=== PATIENT | female | born 1970 | race Caucasian/White ===

== ENCOUNTER 2020-08-23 09:14 | Outpatient (CLI) | payer BC, SELFPAY ==
--- NOTE | ~2020-08-23 | MM_ITS ---
EXAMINATION: MM screening hina BI w adriana HISTORY: Screening mammogram TECHNIQUE: Craniocaudal and mediolateral oblique 3-D tomosynthesis images were obtained and synthetic 2-D images were generated. CAD analysis was submitted and interpreted. COMPARISON: 08/09/2019, 07/15/2018, 05/30/2016 bilateral digital screening mammogram examinations BREAST PARENCHYMAL COMPOSITION: The breasts are almost entirely fatty. FINDINGS: There is no evidence of suspicious mass, calcification, or architectural distortion to sugg est malignancy in either breast. There has been no suspicious interval change. IMPRESSION: 1. No mammographic evidence of malignancy. 2. Recommend routine screening mammography in one year. BI-RADS Category 1: Negative Reviewed, dictated and finalized at location A. WASHER GLUER
== END 2020-08-23 09:15 | disposition home or self-care (01) ==
LOC: ANHIMG 09:16
PROVIDERS: PCP Family Medicine; Visit Provider Nurse Practitioner
DX: Z12.31 Encounter for screening mammogram for malignant neoplasm of breast (principal)
CPT/HCPCS: 77063; 77067

== ENCOUNTER 2021-09-06 07:54 | Outpatient (CLI) | payer BC, SELFPAY ==
--- NOTE | ~2021-09-06 | DEXA_ITS ---
Bone Density Report Name: ETHAN ROSARIO Age: 50 Sex: Female Ethnicity: White Date of : 1970 Indication: postmenopausal; Referring Provider: ANNETTE SOLORIO Study: Bone densitometry was performed. Exam Date: September 06, 2021 Accession number: [id number] Bone Density: Region BMD T-score Z-score Classification AP Spine (L1-L4) 0.954 -0.8 0.1 Normal Femoral Neck (Left) 0.885 0.3 1.2 Normal Total Hip (Left) 1.025 0.7 1.3 Normal Total Hip Bilateral Avg 1.023 0.7 1.3 Normal Femoral Neck (Right) 0.838 -0.1 0.8 Normal Total Hip (Right) 1.019 0.6 1.2 Normal World Health Organization criteria for BMD impression classify patients as: Normal (T-score at or above -1.0), Osteopenia (T-score between -1.0 and -2.5), or Osteoporosis (T-score at or below -2.5). 10-year Fracture Risk: FRAX not reported because: All T-scores for Spine Total, Hip Total, Femoral Neck at or above -1.0 Clinical Information Provided by Patient: Has used the following medications: Vitamin D, Calcium Patient maximum height was 61 Menopause Age: 49 No regular weight bearing exercise Does not regularly consume dairy products Drinks caffeinated beverages Onset of menses at age 10 Number of children 1 Impression: The patient has normal bone mass. Discussion: BONE DENSITY IS ABOVE THE MINIMUM DESIRABLE LEVEL AT ALL SKELETAL SITES TESTED. This patient?s bone mineral density is above the minimum desirable level (T-score -1.0 or better) at all sites measured. The patient should follow a healthful lifestyle (good nutrition with adequate calcium and vitamin D, and appropriate weight-bearing exercise). Follow-Up: Consider repeating this study in 5 years or sooner if there is some new clinical indication. Reported by: [facility] on 09/06/2021 8:20:00 AM. Reviewed, dictated and finalized at location ALeo HERRING
== END 2021-09-06 07:55 | disposition home or self-care (01) ==
LOC: ANHIMG 07:56
PROVIDERS: PCP Family Medicine; Visit Provider Family Medicine
DX: Z78.0 Asymptomatic menopausal state (principal)
CPT/HCPCS: 77080

== ENCOUNTER 2021-10-03 07:41 | Outpatient (CLI) | payer BC, SELFPAY ==
--- NOTE | ~2021-10-03 | MM_ITS ---
EXAMINATION: MM screening hina BI w adriana HISTORY: Screening TECHNIQUE: Craniocaudal and mediolateral oblique 3-D tomosynthesis images were obtained and synthetic 2-D images were generated. CAD analysis was submitted and interpreted. COMPARISON: Comparison to multiple prior studies sequentially, with oldest reviewed study dated 01/08. BREAST PARENCHYMAL COMPOSITION: There are scattered areas of fibroglandular density. FINDINGS: There is no evidence of suspicious mass, calcification, or architectural distortion to sugg est malignancy in either breast. There has been no suspicious interval change. IMPRESSION: 1. No mammographic evidence of malignancy. 2. Recommend routine screening mammography in one year. BI-RADS Category 1: Negative Reviewed, dictated and finalized at location A. ORMANCE SPECIALIST
== END 2021-10-03 07:42 | disposition home or self-care (01) ==
LOC: ANHIMG 07:42
PROVIDERS: PCP Family Medicine; Visit Provider Nurse Practitioner
DX: Z12.31 Encounter for screening mammogram for malignant neoplasm of breast (principal)
CPT/HCPCS: 77063; 77067

== ENCOUNTER 2022-04-14 11:19 | Emergency (ER) | payer BC, SELFPAY ==
--- NOTE | ~2022-04-14 | US_ITS ---
EXAMINATION: US venous doppler [facility] DATE: 04/14/2022 11:53 INDICATION: Left lower limb pain TECHNIQUE: Salgado scale images without and with compression and Doppler images of the left lower extrem ity veins were obtained. COMPARISON: None FINDINGS: The left common femoral vein, profunda femoral vein, femoral vein, popliteal vein, peroneal trunk, posterior tibial veins, and greater saphenous vein are patent. IMPRESSION: 1. Patent left lower extremity veins. No evidence of deep venous thrombosis. Reviewed, dictated and finalized at location B.
[2022-04-14 11:25] VITALS: BP 150/76; PULSE 99; RESP 18; TEMP 36.8; O2SAT 100
--- NOTE | 2022-04-14 12:40 | ED.EXTPRO ---
HPI - Extremity Problem General Chief complaint: Extremity Problem,Nontraumatic Stated complaint: left leg pain Time Seen by Provider: 04/14/22 11:21 History of Present Illness HPI Narrative: Patient is a 51-year-old female who presents the ER with left calf pain. Ongoing over the last month but worsening recently. No known injury. Feels it radiate into the back of her knee. No new edema or redness. No history of PE or DVT but is concerned she may have developed 1. No chest pain or chest pressure or difficulty breathing. 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 Related Data Home Medications Medication Instructions Recorded Confirmed ergocalciferol (vitamin D2) 50 mcg 50 mcg PO .BIW 01/31/21 01/30/22 (2,000 unit) capsule Allergies Allergy/AdvReac Type Severity Reaction Status Date / Time No Known Allergies Allergy Mild Verified 04/14/22 11:31 Review of Systems Review of Systems: All systems reviewed & are unremarkable except as noted in HPI and below Cardiovascular: Cardiovascular: Denies chest pain and Denies rapid heart rate Respiratory: Respiratory: Denies cough and Denies dyspnea Musculoskeletal: Musculoskeletal: Denies joint swelling and Reports muscle cramps Comments: Left calf pain. PMFSH Past Medical History Medical History (Updated 04/14/22 @ 12:58 by Yimi Farrar MD) Anxiety Anxiety Encounter for monitoring diuretic therapy Essential hypertension GERD (gastroesophageal reflux disease) Mixed hyperlipidemia Neck pain Obesity, Class III, BMI 40-49.9 (morbid obesity) Vitamin D deficiency Surgical History Surgical History History of toe surgery (~2018) big toe right foot Hx of section (~1994) [place] teeth extracted Family History Family History Other Family history of rheumatoid arthritis Hypertension Social History Social History Second hand tobacco smoke exposure: No Alcohol intake: never Substance use: never Substance use type: does not use Gender identity (if verbalized by the patient): Female Exam Narrative: GENERAL: Well-appearing, well-nourished, and in no acute distress. HEAD: Normocephalic, atraumatic. CHEST: Clear to auscultation. No respiratory distress. HEART: Regular rate and rhythm. Normal peripheral pulses. EXTREMITIES: Normal range of motion. No edema. Left calf tender. SKIN: Warm, dry, no rash. NEURO: Alert and oriented x3. PSYCH: Normal mood and affect. Course Course Emergency Course: No DVT. Discussed treatment with anti-inflammatories and RICE. Vital Signs Vital signs: Vital Signs Temperature 98.3 F 04/14/22 11:25 Pulse Rate 99 04/14/22 11:25 Respiratory Rate 18 04/14/22 11:25 Blood Pressure 150/76 H 04/14/22 11:25 Pulse Oximetry 100 04/14/22 11:25 Oxygen Delivery Room Air 04/14/22 11:25 Temperature 98.3 F 04/14/22 11:25 Pulse Rate 99 04/14/22 11:25 Respiratory Rate 18 04/14/22 11:25 Blood Pressure 150/76 H 04/14/22 11:25 Pulse Oximetry 100 04/14/22 11:25 Oxygen Delivery Room Air 04/14/22 11:25 MDM - Extremity (Nontraumatic) Imaging Data Radiologist's impression: ITS Impressions Venous Doppler Study 04/14/22 11:54 IMPRESSION: 1. Patent left lower extremity veins. No evidence of deep venous thrombosis. Discharge Plan Discharge Clinical Impression: Strain of calf muscle Patient Disposition: Home, Self-Care Condition: Stable Instructions: Muscle Strain (ED), P.R.I.C.E. Treatment (ED) Additional Instructions: Return to the ER if you have chest pain or shortness of breath, you cannot keep down food or water, you lose consciousness, you have additional concerns. Take Tylenol or ibuprofen as needed for pain. Make sure to stretch her legs. Prescriptio
== END 2022-04-14 13:14 | disposition home or self-care (01) ==
PROVIDERS: Emergency Provider Emergency Medicine; PCP Family Medicine
DX: S86.912A Strain of unspecified muscle(s) and tendon(s) at lower leg level, left leg, initial encounter (principal); E78.2 Mixed hyperlipidemia; K21.9 Gastro-esophageal reflux disease without esophagitis; E66.01 Morbid (severe) obesity due to excess calories; Z68.42 Body mass index [BMI] 45.0-49.9, adult; E55.9 Vitamin D deficiency, unspecified; X58.XXXA Exposure to other specified factors, initial encounter
CPT/HCPCS: 93971; 99284

== ENCOUNTER 2023-04-09 15:32 | Outpatient (CLI) | payer OTHER, SELFPAY ==
--- NOTE | ~2023-04-09 | US_ITS ---
US renal BI DATE: 04/09/2023 16:15 INDICATION: Disorder of kidney and ureter, unspecified TECHNIQUE: Real-time imaging of the kidneys and urinary bladder COMPARISON: None FINDINGS: The right kidney measures approximately 9.5 cm length, left kidney 10.7 cm. Normal bilatera l renal echogenicity. No renal mass lesion or hydronephrosis. Bilateral ureteral jets are demonstrated in the urinary bladder. No filling defect of the urinary janice dder is observed. IMPRESSION: No significant abnormality is demonstrated Reviewed, dictated and finalized at Location A. Reviewed, dictated and finalized at location B.
[2023-04-09 16:43] LABS: Appearance Urine Clear (Clear); Bacteria Urine None Seen /hpf; Bilirubin Urine Negative (Negative); Blood Urine Negative (Negative); Color Urine Yellow (Yellow); Glucose Urine UA Negative (Negative); Ketones Urine Negative (Negative); Leukocyte Esterase Ur 1+ LEU/UL (Negative); Need Manual Microscopic Reviewed; Nitrate Urine Negative (Negative); Non Pathogenic Casts 0-2; Protein Urine Negative (Negative); RBC Urine 0-2 /hpf (0-2); Specific Grav Ur 1.008 (1.001-1.035); Squamous Epithelial Cell Urine None seen /hpf (Few); Urobilinogen Urine 0.2 mg/dL (<2.0); WBC Urine 0-5 /hpf
[2023-04-09 16:46] LABS: Add Urine Microscopic? YES
== END 2023-04-09 15:33 | disposition home or self-care (01) ==
PROVIDERS: PCP Family Medicine; Visit Provider Physician Assistant
DX: N28.9 Disorder of kidney and ureter, unspecified (principal)
CPT/HCPCS: 76775; 81001

== ENCOUNTER 2023-08-20 10:43 | Outpatient (CLI) | payer OTHER, SELFPAY ==
[2023-08-20 11:29] LABS: Alanine Aminotransferase 43 U/L (6-35); Albumin Level 4.7 g/dL (3.5-5.1); Alkaline Phosphatase 61 U/L (38-126); Anion Gap 10 mmol/L (8-16); Aspartate Amino Transferase 41 U/L (14-36); Bilirubin,Total 0.5 mg/dL (0.2-1.3); Blood Urea Nitrogen 22 mg/dL (7-17); Calcium 10.1 mg/dL (8.4-10.2); Carbon Dioxide 25 mmol/L (22-30); Chloride 103 mmol/L (98-107); Cholesterol 199 mg/dL (0-200); Estimated Glomerular Filt Rate 58; Glucose 95 mg/dL (65-110); HDL Direct 79 mg/dL; Potassium 4.3 mmol/L (3.4-5.0); Sodium 138 mmol/L (137-145); Triglycerides 106 mg/dL (<150)
[2023-08-20 11:40] LABS: LDL Cholesterol Direct 83 mg/dL
[2023-08-20 11:46] LABS: Hemoglobin A1C 5.3 % (<5.7)
[2023-08-20 11:53] LABS: Appearance Urine Clear (Clear); Bacteria Urine None Seen /hpf; Bilirubin Urine Negative (Negative); Blood Urine Negative (Negative); Color Urine Yellow (Yellow); Glucose Urine UA Negative (Negative); Ketones Urine Negative (Negative); Leukocyte Esterase Ur 1+ LEU/UL (Negative); Need Manual Microscopic Reviewed; Nitrate Urine Negative (Negative); Non Pathogenic Casts 0-2; Protein Urine Negative (Negative); RBC Urine 0-2 /hpf (0-2); Specific Grav Ur 1.021 (1.001-1.035); Squamous Epithelial Cell Urine Few /hpf (Few); Urobilinogen Urine 0.2 mg/dL (<2.0); WBC Urine 0-5 /hpf; pH Urine 5.5 (5.0-9.0)
[2023-08-20 12:04] LABS: Add Urine Microscopic? YES
== END 2023-08-20 10:44 | disposition home or self-care (01) ==
LOC: ANHLAB 10:45
PROVIDERS: PCP Family Medicine; Visit Provider Family Medicine
DX: R73.03 Prediabetes (principal); N18.30 Chronic kidney disease, stage 3 unspecified; R53.83 Other fatigue; E78.2 Mixed hyperlipidemia
CPT/HCPCS: 36415; 80053; 80061; 81001; 83036; 84443

== ENCOUNTER 2023-10-22 00:56 | Day surgery (SDC) | payer OTHER, SELFPAY ==
[2023-09-23 13:17] VITALS: BMI 44.3
--- NOTE | 2023-10-20 11:32 | SUR.PREOP ---
Patient called regarding upcoming procedure. Message left on pt's voicemail regarding appointment times.
--- NOTE | 2023-10-20 19:17 | PM.HPGS ---
History of Present Illness History of Present Illness Consent: Risks, benefits, and alternatives have been discussed and questions answered. Patient agrees to proceed with procedure. Chief complaint: neoplasm screening Narrative: Radha Phan is a 52 year old female who is referred for colon cancer screening. Review of Systems Review of Systems: All systems reviewed & are unremarkable except as noted in HPI and below PMFSH Past Medical History Medical History Anxiety Anxiety Encounter for monitoring diuretic therapy Essential hypertension GERD (gastroesophageal reflux disease) Knee pain Mixed hyperlipidemia Neck pain Obesity, Class III, BMI 40-49.9 (morbid obesity) Prediabetes Seasonal allergic rhinitis Vitamin D deficiency Surgical History Surgical History History of toe surgery (~2018) big toe right foot Hx of section (~1994) [place] teeth extracted Family History Family History Other Family history of rheumatoid arthritis Hypertension Social History Social History Smoking status: Never smoker Second hand tobacco smoke exposure: No Alcohol intake: never Substance use: never Substance use type: does not use Lack of Transportation: No Lack of Food: Never True Current Housing: I Have Housing Concerned About Future Housing: No Difficulty Paying Gas/Electric Bills: No Difficulty Paying for Meds: No Currently Unemployed: No Education: High School Diploma/GED Difficulty w/ Childcare or Family Care: No Living arrangements: with family Occupation/Education: occupation Gender identity (if verbalized by the patient): Female Spiritual care concerns: No Agree to blood products: Yes Meds Home Medications and Allergies Home Medications Medication Instructions Recorded Confirmed Type aspirin 81 mg tablet,delayed 81 mg PO DAILY #90 tabs 08/08/21 10/22/23 Rx release cetirizine 10 mg tablet (Zyrtec) 10 mg PO DAILY #90 tabs 07/08/23 10/22/23 Rx fenofibrate nanocrystallized 145 145 mg PO DAILY #90 tabs 07/08/23 10/22/23 Rx mg tablet losartan 100 mg tablet 100 mg PO DAILY #90 tabs 07/08/23 10/22/23 Rx venlafaxine 75 mg capsule,extended 75 mg PO DAILY #90 caps 07/08/23 10/22/23 Rx release 24 hr tramadol 50 mg tablet 50 mg PO Q8H PRN pain 09/23/23 10/22/23 History triamterene 75 1 tablet PO DAILY PRN swelling 09/23/23 10/22/23 History mg-hydrochlorothiazide 50 mg tablet Allergies Allergy/AdvReac Type Severity Reaction Status Date / Time No Known Allergies Allergy Mild Verified 10/22/23 08:05 Exam Resp: Auscultation: clear to auscultation bilaterally Cardio: Rate: regular rate Rhythm: regular rhythm GI: GI Palp: Yes Soft to palpation and No Tenderness to palpation present (GI) Assessment and Plan Assessment and plan (1) Colon cancer screening: Code(s): Z12.11 - Encounter for screening for malignant neoplasm of colon Status: Acute Assessment and Plan: Colonoscopy with possible biopsy or polypectomy or cautery or injection of substances.
[2023-10-22 08:07] VITALS: BP 146/95; PULSE 106; RESP 20; TEMP 36.6; O2SAT 100
[2023-10-22] MEDS: LACTATED RINGERS 1,000 ML 150 ML IV CONT (08:21)
--- NOTE | 2023-10-22 09:12 | WPDANESEPPF ---
Anes - Initial Pre Proc Eval Procedure: Operation Date: 10/22/23 09:00 Proposed Procedures p Screening Colonoscopy - Srinivas Manning MD Date/Time: 10/22/23 09:12 Surgeon: Srinivas Manning MD Pre Op Diagnosis: neoplasm screening Patient Data Age: 52 Gender: F Height: 1.55 m Weight: 103.6 kg Last Vital Signs Temp 97.8 F 10/22/23 08:07 Pulse 106 H 10/22/23 08:07 Resp 20 10/22/23 08:07 BP 146/95 H 10/22/23 08:07 Pulse Ox 100 10/22/23 08:07 O2 Del Method Room Air 10/22/23 08:07 Allergies Allergy/AdvReac Type Severity Reaction Status Date / Time No Known Allergies Allergy Mild Verified 10/22/23 08:05 Home Medications Medication Instructions Recorded Confirmed Type aspirin 81 mg tablet,delayed 81 mg PO DAILY #90 tabs 08/08/21 10/22/23 Rx release cetirizine 10 mg tablet (Zyrtec) 10 mg PO DAILY #90 tabs 07/08/23 10/22/23 Rx fenofibrate nanocrystallized 145 145 mg PO DAILY #90 tabs 07/08/23 10/22/23 Rx mg tablet losartan 100 mg tablet 100 mg PO DAILY #90 tabs 07/08/23 10/22/23 Rx venlafaxine 75 mg capsule,extended 75 mg PO DAILY #90 caps 07/08/23 10/22/23 Rx release 24 hr tramadol 50 mg tablet 50 mg PO Q8H PRN pain 09/23/23 10/22/23 History triamterene 75 1 tablet PO DAILY PRN swelling 09/23/23 10/22/23 History mg-hydrochlorothiazide 50 mg tablet Patient hx anesthesia problems: none Family hx anesthesia problems: none Results Review: All pre-operative results and documents have been reviewed as part of the pre-operative evaluation. [facility] Past Medical History Medical History Anxiety Anxiety Encounter for monitoring diuretic therapy Essential hypertension GERD (gastroesophageal reflux disease) Knee pain Mixed hyperlipidemia Neck pain Obesity, Class III, BMI 40-49.9 (morbid obesity) Prediabetes Seasonal allergic rhinitis Vitamin D deficiency Surgical History Surgical History History of toe surgery (~2018) big toe right foot Hx of section (~1994) [place] teeth extracted Family History Family History Other Family history of rheumatoid arthritis Hypertension Social History Social History Smoking status: Never smoker Second hand tobacco smoke exposure: No Alcohol intake: never Substance use: never Substance use type: does not use Lack of Transportation: No Lack of Food: Never True Current Housing: I Have Housing Concerned About Future Housing: No Difficulty Paying Gas/Electric Bills: No Difficulty Paying for Meds: No Currently Unemployed: No Education: High School Diploma/GED Difficulty w/ Childcare or Family Care: No Living arrangements: with family Occupation/Education: occupation Gender identity (if verbalized by the patient): Female Spiritual care concerns: No Agree to blood products: Yes Anes - Eval Final PreProcedure Day of Procedure 10/22/23 09:12 Patient weight: morbidly obese Heart: regular rate and rhythm Lungs: clear to auscultation Airway: Mallampati scale class II Neurological: alert and oriented Last oral intake: >/= 8 hours ASA classification: III Emergent: no Anesthetic plan: proceed Anesthesia type and monitoring: general GIVS and standard monitoring Results Review: All pre-operative results and documents have been reviewed as part of the pre-operative evaluation. Informed Consent: The patient's anesthetic plan and its attendant risks and benefits were discussed with the patient/family/POA. Questions were solicited and answers provided to the satisfaction of the patient/family/POA.
[2023-10-22 09:27] VITALS: BP 124/64; PULSE 74; RESP 22; O2SAT 99
[2023-10-22 09:37] VITALS: BP 142/73; PULSE 72; RESP 18; O2SAT 100
[2023-10-22 09:47] VITALS: BP 128/67; PULSE 72; RESP 22; O2SAT 100
== END 2023-10-22 10:11 | disposition home or self-care (01) ==
PROVIDERS: PCP Family Medicine; Visit Provider Internal Medicine Gastroenterology
PROC: 0DJD8ZZ Inspection of Lower Intestinal Tract, Via Natural or Artificial Opening Endoscopic (ICD-10-PCS; CPT 45378; principal; 2023-10-22 09:00)
DX: Z12.11 Encounter for screening for malignant neoplasm of colon (principal); I10 Essential (primary) hypertension; E78.2 Mixed hyperlipidemia; E55.9 Vitamin D deficiency, unspecified; F41.9 Anxiety disorder, unspecified; R73.03 Prediabetes; J30.2 Other seasonal allergic rhinitis; K21.9 Gastro-esophageal reflux disease without esophagitis; E66.01 Morbid (severe) obesity due to excess calories; Z68.41 Body mass index [BMI] 40.0-44.9, adult; Z98.890 Other specified postprocedural states; Z79.82 Long term (current) use of aspirin; Z79.891 Long term (current) use of opiate analgesic
CPT/HCPCS: 45378; J2704; J7120

== ENCOUNTER 2023-11-12 07:43 | Outpatient (CLI) | payer OTHER, SELFPAY ==
--- NOTE | ~2023-11-12 | MM_ITS ---
EXAMINATION: MM screening hina BI w adriana HISTORY: Screening TECHNIQUE: Craniocaudal and mediolateral oblique 3-D tomosynthesis images were obtained and synthetic 2-D images were generated. CAD analysis was submitted and interpreted. COMPARISON: Comparison to multiple prior studies sequentially, with oldest reviewed study dated 05/2014. BREAST PARENCHYMAL COMPOSITION: Not Dense: Breast are almost entirely fatty. FINDINGS: There is no evidence of suspicious mass, calcification, or architectural distortion to sugg est malignancy in either breast. There has been no suspicious interval change. IMPRESSION: 1. No mammographic evidence of malignancy. 2. Recommend routine screening mammography in one year. BI-RADS Category 1: Negative Reviewed, dictated and finalized at location A. ND GRINDER
== END 2023-11-12 07:44 | disposition home or self-care (01) ==
LOC: ANHIMG 07:45
PROVIDERS: PCP Family Medicine; Visit Provider Nurse Practitioner
DX: Z12.31 Encounter for screening mammogram for malignant neoplasm of breast (principal)
CPT/HCPCS: 77063; 77067

== ENCOUNTER 2024-04-28 07:54 | Outpatient (CLI) | payer OTHER, SELFPAY ==
--- NOTE | ~2024-04-28 | US_ITS ---
US abdomen limited INDICATION: Normal lab values. PROCEDURE: Realtime right upper abdominal ultrasound. COMPARISON: No prior studies for comparison. FINDINGS: The pancreas is normal without focal mass or pancreatic ductal dilation. Liver echotexture is increased, consistent with fatty infiltration. There is normal directional flow in the portal ve in. The gallbladder is normal without stones, gallbladder wall thickening or pericholecystic fluid. Comm on bile duct measures 5 mm. No sonographic Richter's sign. IMPRESSION: 1: Fatty infiltration of the liver. Reviewed, dictated and finalized at location B.
== END 2024-04-28 07:55 | disposition home or self-care (01) ==
PROVIDERS: PCP Family Medicine; Visit Provider Family Medicine
DX: R74.8 Abnormal levels of other serum enzymes (principal); K76.0 Fatty (change of) liver, not elsewhere classified
CPT/HCPCS: 76705

== ENCOUNTER 2025-07-03 01:27 | Emergency (ER) | payer OTHER, SELFPAY ==
[2025-07-03] VITALS (10 sets, daily range): BP systolic 135–155; BP diastolic 64–94; PULSE 91–106; RESP 15–20; TEMP 36.6; O2SAT 98–100
--- NOTE | ~2025-07-03 | CT_ITS ---
EXAMINATION: CT abdomen pelvis w con DATE: 07/03/2025 07:59 INDICATION: Abdominal pain. Low back pain. TECHNIQUE: Computed tomography (CT) of the abdomen and pelvis was performed with 100 mL Omnipaque 350 intravenous contrast. Automated exposure control and iterative reconstruction technique were employed. The dose-length product was 1133.14 mGy-cm. COMPARISON: None. FINDINGS: The visualized portions of the lung bases demonstrate mild atelectasis. No pleural effusion. The heart size is normal. No pericardial effusion. The liver, gallbladder, spleen, pancreas, adrenal glands, and kidneys are normal. There are no dilated loops of bowel. The appendix is normal. There are no pathologically enlarged lymph nodes. There is no free intraperitoneal fluid. There is an infraumbilical ventral hernia containing fat. There is a benign bone island in right ischium. There is moderate lumbar spondylosis. There is mild thoracic spondylosis. IMPRESSION: 1. Infraumbilical ventral hernia containing fat. Reviewed, dictated and finalized at location E.
--- NOTE | ~2025-07-03 | CT_ITS ---
CT HEAD NON-CONTRAST CT C-SPINE Clinical History: syncope w/ LOC; hit L skull Comparison: None Technique: Unenhanced axial images skull base to vertex. Coronal, sagittal reformats. Axial images thoracic inlet to skull base. Sagittal and coronal reformats. CT images acquired with automatic exposure control for dose reduction DLP: 605 mGy-cm Findings: Head: Sulci, ventricles: Unremarkable. No intracerebral hemorrhage. No evidence acute territorial infarct. No mass effect, midline shift, intra-/extra-axial fluid collection. Bony calvarium intact. Visualized paranasal sinuses: Clear. Mastoid air cells: Clear. C-spine: Ankylosis C1-C2. Severe compression deformity C3. No sharp edges or surrounding soft tissue inflammatory change. Otherwise no fracture or listhesis. Mild degenerative changes. Disc spaces maintained. Prevertebral soft tissues within normal limits. Visualized lung apices: Clear. Visualized thyroid: Unremarkable. No enlarged cervical nodes. Small nodes at most levels. IMPRESSION: HEAD: 1. No acute intracranial findings. C-SPINE: 1. No definite acute abnormality. 2. Severe compression deformity C3, appears chronic. However a superimposed injury cannot be excluded. Can consider MRI if clinically worrisome for acute abnormality. Reviewed, dictated and finalized at location R. IMPRESSION: HEAD: 1. No acute intracranial findings. C-SPINE: 1. No definite acute abnormality. 2. Severe compression deformity C3, appears chronic. However a superimposed in jury cannot be excluded. Can consider MRI if clinically worrisome for acute abn ormality.
--- NOTE | ~2025-07-03 | XR_ITS ---
Examination: XR chest 1V portable Clinical History: syncope Comparison: None Technique: Portable AP Findings: Heart size normal. Lungs clear. No acute bony abnormality. IMPRESSION: 1. No acute cardiopulmonary findings given portable technique. Reviewed, dictated and finalized at location R.
--- NOTE | 2025-07-03 01:41 | ECG_ITS ---
Test Date: 2025-07-03 01:41:39 Measurements Intervals [place] Rate: 99 P: 65 ND: 201 QRS: 7 QRSD: 70 T: 32 QT: 322 QTc: 413 Interpretive Statements SINUS RHYTHM INCOMPLETE RIGHT BUNDLE BRANCH BLOCK LOW QRS VOLTAGE IN PRECORDIAL LEADS VOLTAGE CRITERIA FOR LVH BASELINE ARTIFACT- I, II, III, AVR, AVL, AVF, V1-V6 BORDERLINE ECG No previous ECG available for comparison Electronically Signed On 07-03-2025 05:37:49 CDT by Jg Timmons D.O.
[2025-07-03 01:57] LABS: Hematocrit 37.6 % (37.0-47.0); Hemoglobin 12.5 g/dL (12.0-15.0); Immature Granulocyte Percent A 0.2 % (0-0.5); Lymphocytes Absolute Auto 2.23 K/mm3 (0.9-3.2); Mean Corpuscular HGB Conc 33.2 g/dl (32-36); Mean Corpuscular Hemoglobin 29.3 pg (26-34); Mean Corpuscular Volume 88.3 fl (80-100); Nucleated Red Blood Cells Absolute Auto 0.000 K/mm3 (0.0-0.012); Nucleated Red Blood Cells Perc 0.0 % (0.0-0.2); Platelet Count Result 256 k/mm3 (150-375); Red Blood Count 4.26 M/mm3 (4.2-5.4); White Blood Count 4.1 K/mm3 (4.5-10.0)
[2025-07-03 02:02] LABS: Alanine Aminotransferase 48 U/L (6-35); Albumin Level 4.3 g/dL (3.5-5.1); Alkaline Phosphatase 60 U/L (38-126); Anion Gap 7 mmol/L (4-12); Aspartate Amino Transferase 50 U/L (14-36); Bilirubin,Total 0.4 mg/dL (0.2-1.3); Blood Urea Nitrogen 20 mg/dL (7-17); Calcium 9.4 mg/dL (8.4-10.2); Carbon Dioxide 27 mmol/L (22-30); Chloride 104 mmol/L (98-107); Estimated CRCL calculation 59 ml/min; Estimated Glomerular Filt Rate 55; Glucose 99 mg/dL (65-110); Potassium 3.2 mmol/L (3.4-5.0); Sodium 138 mmol/L (137-145); Total Protein 7.3 g/dL (6.3-8.2)
--- NOTE | 2025-07-03 07:18 | ED.DIZZY ---
HPI - Dizziness General Chief Complaint: Dizziness Stated Complaint: Dizzy and fall after using restroom; BS 62 Time Seen by Provider: 07/03/25 06:59 Source: patient, family and RN notes reviewed Mode of arrival: EMS Limitations: no limitations History of Present Illness HPI Narrative: Patient presents with report of becoming dizzy and falling after going to the restroom overnight. She reports that she got out of bed and went to the bathroom and between standing from the toilet and trying to go back to the bedroom, she became dizzy and nauseated. The patient then lost consciousness briefly and fell in the process, striking her head on the wall which damaged the plaster according to her partner her. She denies any dizziness or nausea right now. Her headache is better as well. Her blood sugar had been noted to be 62 by EMS. No history of diabetes only a diagnosis of pre diabetes mellitus for which she is not on any medications and does not regularly check her blood sugar. EMS gave her oral glucose and repeat was 103 mg/dL. She reports that she does have a degree of some chronic back pain however yesterday she seemed to be having a fair amount of back pain. She thought it might be an issue with her kidney although she describes pain in the center of her back. She did take tramadol last night which she takes at baseline for chronic knee pain. She describes the dizziness as both a lightheaded sensation and there was rotational movements/spinning. Denies any chest pain or shortness of breath. She has chronic tinnitus with no acute changes but denies any hearing changes or ear pain. Denies any paresthesias or saddle anesthesia. No bowel or bladder incontinence. She has a history of hypertension and is on losartan for this but has not yet taken it today. She denies any hematuria or dysuria. She has had a little bit of abdominal pain intermittently though no localized area. Related Data Home Medications ?Medication ?Instructions ?Recorded ?Confirmed ?Last Taken ?Type triamterene 75 1 tablet PO DAILY PRN swelling 09/23/23 01/26/25 10/21/23 History mg-hydrochlorothiazide 50 mg tablet Allergies Allergy/AdvReac Type Severity Reaction Status Date / Time No Known Allergies Allergy Mild Verified 07/03/25 01:42 [facility] Past Medical History Medical History Prediabetes Seasonal allergic rhinitis Knee pain Obesity, Class III, BMI 40-49.9 (morbid obesity) Encounter for monitoring diuretic therapy Vitamin D deficiency Anxiety Mixed hyperlipidemia Essential hypertension GERD (gastroesophageal reflux disease) Anxiety Neck pain Surgical History Surgical History [place] teeth extracted History of toe surgery (~2018) big toe right foot Hx of section (~1994) Family History Family History Other Family history of rheumatoid arthritis Hypertension Social History Social History Smoking status: Never smoker Second hand tobacco smoke exposure: No Alcohol intake: never Substance use: never Substance use type: does not use Do You Feel Safe in your Home?: Yes Lack of Transportation: No Lack of Food: Never True Current Housing: I Have Housing Concerned About Future Housing: No Difficulty Paying Gas/Electric Bills: No Difficulty Paying for Meds: No Currently Unemployed: No Education: High School Diploma/GED Difficulty w/ Childcare or Family Care: No Living arrangements: with family Occupation/Education: occupation Gender identity (if verbalized by the patient): Female Spiritual care concerns: No Agree to blood products: Yes Exam Narrative: GENERAL: Well-appearing, well-nourished, and in no acute distress. HEAD: No laceration/bleeding EYES: Non injected, non icteric. EOMI. ENT: Nares clear, no rhinorrhea or epistaxis. Gross auditory acuity intact. Bilateral TMs visualized, no FB/cerumen impaction. No erythema/vesicles/bulging. No hemotympanum. NECK: C-collar initially in place. (After careful removal, palpated throughout and Supple. No meningismus. No TTP throughout cervical spine which is without bony deformity. Midline. No step offs. Demonstrates full ROM without pain or limitation) CHEST: Speaking in full sentences. No respiratory distress. HEART: Regular rate and rhythm. . ABDOMEN: Morbidly obese but Soft, nondistended. No rigidity or guarding. Not peritoneal EXTREMITIES: Normal range of motion. No lower extremity edema. SKIN: Warm, dry, no rash. NEURO: No focal deficits. Alert and oriented. Answering questions. Following commands. Normal speech without aphasia or dysarthria. Moving extremities x4. BACK: No midline TTP of back, without bony step offs. Demonstrates some flexion and extension though full ROM limited due to how patient is positioned in bed/body habitus. PSYCH: Normal mood and affect. Course Vital Signs Vital signs: Vital Signs Temperature 97.9 F 07/03/25 01:27 Pulse Rate 103 H 07/03/25 01:27 Respiratory Rate 16 07/03/25 01:27 Blood Pressure 143/74 H 07/03/25 01:27 Pulse Oximetry 100 07/03/25 01:27 Oxygen Delivery Room Air 07/03/25 01:27 Temperature 97.9 F 07/03/25 01:27 Pulse Rate 94 07/03/25 09:15 Respiratory Rate 15 07/03/25 09:15 Blood Pressure 135/65 07/03/25 09:02 Pulse Oximetry 100 07/03/25 09:15 Oxygen Delivery Room Air 07/03/25 01:27 MDM - Dizziness MDM Narrative Medical decision making narrative: In the emergency department she is afebrile with vital signs notable for mild hypertension as well as mild tachycardia. Patient has a leukopenia. New although had been low normal previously. Mild hypokalemia. Oral repletion ordered. Patient's creatinine appears to be baseline which is to say that there are occasional mild abnormalities outside of the upper limit of normal. Likely represents a small degree of chronic kidney disease early stage verses recurrent HALI. 500cc IV fluids ordered. She has chronic mild transaminitis. Magnesium within normal limits. Urinalysis unremarkable. Given patient had a syncopal episode with back pain and some abdominal pain, CT ordered. CT C-spine shows concern for compression fracture at C3. Patient states that she had a scan previously performed was told that she had severe degenerative disease but was not aware of any particular compression fracture. As C-collar is removed, neck is palpated and patient has no tenderness palpation midline although she states that over the weekend she does note that she had been having some neck pain although no acute injury or trauma preceded that. She states that it typically tends to be worse as the day goes on. [place] Syncope Rule: Congestive heart failure history: No Hematocrit <30%: No EKG abnormal (changed or any non-sinus rhythm): No SOB symptoms: No SBP <90mmHg at triage: No Ortho stats are reviewed and stable/acceptable. Attempted to consult [employer] communications [employer] neurosurgeon but no response after 1.5 hours as they are in surgery. Patient otherwise stable for discharge. Discharged with Rx for multimodal pain regimen. Differential Diagnosis Differential diagnosis: Likely adverse reaction to drug, benign paroxysmal positional vertigo, orthostatic hypotension, vertebral basilar insufficiency, cerebrovascular accident, acute vestibular neuronitis, transient cerebral ischemia and other (fracture; intracranial hemorrhage; vascular; sprain/strain; considered causes of syncope including AAA; infection; cardiogenic; vasovagal; orthostatic) Lab Data Attestation: I reviewed the patient's lab results. 07/03/25 01:44 07/03/25 01:44 Labs: Lab Results 07/03/25 07/03/25 07/03/25 Range/Units 01:44 05:56 07:44 WBC 4.1 L (4.5-10.0) K/mm3 RBC 4.26 (4.2-5.4) M/mm3 Hgb 12.5 (12.0-15.0) g/dL Hct 37.6 (37.0-47.0) % MCV 88.3 (80-100) fl MCH 29.3 (26-34) pg MCHC 33.2 (32-36) g/dl RDW 13.3 (11.5-14.5) % Plt Count 256 (150-375) k/mm3 MPV 10.3 (7.4-10.4) fl Immature Gran % (Auto) 0.2 (0-0.5) % Neut % (Auto) 31.7 L (45.5-73.1) % Lymph % (Auto) 54.5 H (18.3-44.2) % [place] % (Auto) 11.2 H (2.6-8.5) % Eos % (Auto) 1.7 (0-4.4) % Baso % (Auto) 0.7 (0.2-1.2) % Lymph # (Auto) 2.23 (0.9-3.2) K/mm3 [place] # (Auto) 0.5 (0.1-0.6) K/mm3 Eos # (Auto) 0.1 (0-0.3) K/mm3 Baso # (Auto) 0.0 (0.0-0.1) K/mm3 Abs Immat Gran (auto) 0.01 (0.00-0.031) K/mm3 Absolute Neuts (auto) 1.3 (1.3-6.7) K/mm3 Absolute Nucleated RBC 0.000 (0.0-0.012) K/mm3 Nucleated RBC % 0.0 (0.0-0.2) % Sodium 138 (137-145) mmol/L Potassium 3.2 L (3.4-5.0) mmol/L Chloride 104 (98-107) mmol/L Carbon Dioxide 27 (22-30) mmol/L Anion Gap 7 (4-12) mmol/L BUN 20 H (7-17) mg/dL Creatinine 1.04 H (0.7-1.0) mg/dL Estim Creat Clear Calc 59 ml/min Estimated GFR 55 L (59 - ) Glucose 99 (65-110) mg/dL POC Capillary Glucose 110 H (65-105) mg/dl Calcium 9.4 (8.4-10.2) mg/dL Magnesium 1.7 (1.6-2.3) mg/dL Total Bilirubin 0.4 (0.2-1.3) mg/dL AST 50 H (14-36) U/L ALT 48 H (6-35) U/L Alkaline Phosphatase 60 (38-126) U/L Total Protein 7.3 (6.3-8.2) g/dL Albumin 4.3 (3.5-5.1) g/dL Urine Color Yellow (Yellow) Urine Appearance Clear (Clear) Urine pH 7.0 (5.0-9.0) Ur Specific [place] 1.014 (1.001-1.035) Urine Protein Negative (Negative) mg/dL Urine Glucose (UA) Negative (Negative) mg/dL Urine Ketones Negative (Negative) mg/dL Ur Blood (Man) Negative (Negative) Urine Nitrate Negative (Negative) Urine Bilirubin Negative (Negative) Urine Urobilinogen 1.0 (<2.0) mg/dL Leukocyte Esterase Rfl Negative (Negative) RAVI/UL Imaging Data Radiologist's impression: Impressions Chest X-Ray 07/03/25 06:08 IMPRESSION: 1. No acute cardiopulmonary findings given portable technique. Cervical Spine CT 07/03/25 08:00 IMPRESSION: HEAD: 1. No acute intracranial findings. C-SPINE: 1. No definite acute abnormality. 2. Severe compression deformity C3, appears chronic. However a superimposed injury cannot be excluded. Can consider MRI if clinically worrisome for acute abnormality. Head CT 07/03/25 08:00 IMPRESSION: HEAD: 1. No acute intracranial findings. C-SPINE: 1. No definite acute abnormality. 2. Severe compression deformity C3, appears chronic. However a superimposed injury cannot be excluded. Can consider MRI if clinically worrisome for acute abnormality. Abdomen/Pelvis CT 07/03/25 08:03 IMPRESSION: 1. Infraumbilical ventral hernia containing fat. ECG Data EKG #1: Attestation: I personally reviewed and interpreted this ECG as follows: ECG completion date: 07/03/25 ECG completion time: 01:41 Interpretation: Normal sinus rhythm at a rate of 99 beats per minute. CA interval 201. QRS 70. QT/QTC 322/413. Good R-wave progression across the precordial leads. No T-wave inversions. Discharge Plan Discharge Clinical Impression: Dizziness, Leukopenia, Hypokalemia, HALI (acute kidney injury), Transaminitis, Hernia, Low back pain, Syncope and collapse, Compression fracture of C3 vertebra Patient Disposition: Home Condition: Stable Instructions: Antibiotic Form, Acute Kidney Injury (DC), Vertebral Compression Fracture (ED), Hypokalemia (ED), Syncope (ED), Narcotic Safety (ED), Umbilical Hernia (ED), Dizziness (ED), Back Pain (ED), Lower Back Exercises (ED), Transaminitis (ED) Additional Instructions: As we discussed, your CT scan showed: Severe compression deformity C3, appears chronic. However a superimposed injury cannot be excluded. Can consider MRI if clinically worrisome for acute abnormality. Discuss with your primary care physician to arrange. If you are in need of a new PCP, the name of a doctor is listed below. Use the combination of medications prescribed to help with pain. Acetaminophen/Tylenol (maximum 4000 mg per day) is safe to take with NSAIDs (ibuprofen/Motrin) for pain relief. A muscle relaxer may help at night. Topical lidocaine patch also prescribed. For breakthrough pain, a short course of opiates/narcotic medications have been prescribed but do NOT use these with the tramadol you are prescribed. The goal is to use a combination of medications to make pain more tolerable to allow for movement/activity/ stretching and strengthening exercises. Otherwise the workup for your episode of syncope (losing muscle tone and consciousness) did not reveal an exact cause although, as we discussed, I suspect orthostatic versus vasovagal and you had just moved from seated to standing and appeared mildly dehydrated with an acute kidney injury; you received IV fluids. Return to the emergency department any new or worsening symptoms. In particular if you have increased pain in your back, you develop lower extremity weakness/numbness/paralysis, you have numbness or tingling in your private parts, or you are unable to control your ability to urinate/stool. Patient Language: Egyptian Prescriptions: New lidocaine 4 % adhesive patch,medicated 1 patch topical DAILY PRN (Reason: pain) Qty: 10 0RF ibuprofen 600 mg tablet 600 mg PO TID PRN (Reason: pain) Qty: 30 0RF acetaminophen 500 mg capsule 1,000 mg PO Q6H PRN (Reason: pain) Qty: 30 0RF methocarbamol 750 mg tablet 750 mg PO HS Qty: 7 0RF No Action triamcinolone acetonide 0.1 % ointment 1 applic topical BID PRN (Reason: rash) Qty: 80 0RF Wegovy 0.25 mg/0.5 mL pen injector 0.25 mg subcut WEEKLY Qty: 2 0RF Rx Instructions: administer weeks 1 through 4 of therapy triamterene-hydrochlorothiazid 75-50 mg tablet 1 tablet PO DAILY PRN (Reason: swelling) fenofibrate nanocrystallized 145 mg tablet 145 mg PO DAILY Qty: 90 3RF losartan 100 mg tablet 100 mg PO DAILY Qty: 90 3RF cetirizine [Zyrtec] 10 mg tablet 10 mg PO DAILY Qty: 90 3RF venlafaxine 75 mg capsule,extended release 24hr 75 mg PO DAILY Qty: 90 1RF tramadol 50 mg tablet 50 mg PO Q8H PRN (Reason: pain) Qty: 90 0RF Follow-up/Referrals: Alejandra Liao MD [Primary Care Provider, Family Practice] Crispin Schulte MD [Physician, Family Practice] Stand Alone Forms: Work/School Release IP Time of Disposition: 10:30
--- NOTE | 2025-07-03 07:40 | PC.NURSE ---
Called [facility], spoke with Shonda. Aware of add on Mag.
[2025-07-03] MEDS: SODIUM CHLORIDE 0.9% IV 500 ML 999 ML IV CONT (07:45)
[2025-07-03 07:46] LABS: Magnesium 1.7 mg/dL (1.6-2.3)
[2025-07-03] MEDS: POTASSIUM BICARBONATE 25 MEQ TABEF 50 MEQ PO (07:46)
[2025-07-03 07:57] LABS: Add Urine Microscopic? NO; Appearance Urine Clear (Clear); Glucose Urine UA Negative (Negative); Leukocyte Esterase Ur Negative LEU/UL (Negative); Nitrate Urine Negative (Negative); Specific Grav Ur 1.014 (1.001-1.035)
[2025-07-03] MEDS: HYDROcodone/acetaminophen (*CRX) 5-325 MG TABLET 1 TAB PO (08:47)
== END 2025-07-03 10:45 | disposition home or self-care (01) ==
PROVIDERS: Emergency Medicine; Emergency Provider Student in an Organized Health Care Education/Training Program; PCP Family Medicine
DX: S12.290A Other displaced fracture of third cervical vertebra, initial encounter for closed fracture (principal); N17.9 Acute kidney failure, unspecified; R55 Syncope and collapse; R42 Dizziness and giddiness; K43.9 Ventral hernia without obstruction or gangrene; D72.819 Decreased white blood cell count, unspecified; E87.6 Hypokalemia; R74.01 Elevation of levels of liver transaminase levels; I10 Essential (primary) hypertension; E55.9 Vitamin D deficiency, unspecified; E78.2 Mixed hyperlipidemia; E66.01 Morbid (severe) obesity due to excess calories; Z68.41 Body mass index [BMI] 40.0-44.9, adult; R73.03 Prediabetes; K21.9 Gastro-esophageal reflux disease without esophagitis; F41.9 Anxiety disorder, unspecified; Z79.899 Other long term (current) drug therapy; I45.10 Unspecified right bundle-branch block; W01.198A Fall on same level from slipping, tripping and stumbling with subsequent striking against other object, initial encounter
CPT/HCPCS: 36415; 70450; 71045; 72125; 74177; 80053; 81003; 82948; 83735; 85025; 93005; 99284; A9270; J7040; Q9967